=== PATIENT | male | born 1960 | race Caucasian/White ===

== ENCOUNTER → 2017-06-11 | Outpatient (CLI) | payer OTHER ==
--- NOTE | 2017-06-11 09:17 | RADIOLOGY REPORT (SQ) ---
EXAM DESCRIPTION: U/S ABDOMEN LIMITED W/O DOP COMPLETED DATE/TIME: 06/11/2017 9:05 am REASON FOR STUDY: ABNORMAL LFT (R94.5) R94.5 ABNORMAL RESULTS OF LIVER FUNCTION STUDIES COMPARISON: None. TECHNIQUE: Dynamic and static grayscale images acquired of the abdomen and recorded on PACS. Additio nal selected color Doppler and spectral images recorded. LIMITATIONS: Midline bowel gas FINDINGS: PANCREAS: Midline pancreas not visualized LIVER: No gross masses. Increased echogenicity from diffuse hepatocellular disease or fatty infiltra tion. LIVER VASCULATURE: Normal directional flow of the main portal vein and hepatic veins. GALLBLADDER: No stones. Normal wall thickness. No pericholecystic fluid. ULTRASOUND-DETECTED REYNOLDS'S SIGN: Negative. INTRAHEPATIC DUCTS AND COMMON DUCT: CBD and intrahepatic ducts normal caliber. No filling defects. D istal most common duct not seen due to duodenum gas. INFERIOR VENA CAVA: Not well seen AORTA: Not well seen RIGHT KIDNEY: Normal size. Normal echogenicity. No solid or suspicious masses. No hydronephrosis. No calcifications. PERITONEAL AND RIGHT PLEURAL SPACE: No ascites or effusions. OTHER: No other significant findings. IMPRESSION: Echogenic liver from diffuse hepatocellular disease or fatty infiltration Nonvisualized midline pancreas, abdominal aorta, vena cava No gallstones or biliary ductal dilatation TECHNICAL DOCUMENTATION: JOB ID: [id number] [employer]- All Rights Reserved
== END ==
LOC: RAD 07:56
PROVIDERS: ATTEND Family Medicine
DX: R94.5 Abnormal results of liver function studies (principal)
CPT/HCPCS: 76705

== ENCOUNTER 2018-11-18 08:35 | Day surgery (SDC) | payer OTHER ==
[2018-11-18] MEDS ORDERED: ONDANSETRON HCL INJ/PF 4 MG/2 ML SDV ONE (08:48)
[2018-11-18] MEDS ORDERED: DIPHENHYDRAMINE HCL 50 MG/ML VIAL ONE (08:48)
[2018-11-18] MEDS ORDERED: EPINEPHRINE INJ 1 MG/10 ML DISP.SYRIN ONE (08:49)
[2018-11-18] MEDS ORDERED: NALOXONE HCL INJ/PF 0.4 MG/1 ML SDV ONE (08:49)
[2018-11-18] MEDS ORDERED: GLUCAGON,HUMAN RECOMB 1 MG INJ ONE (08:49)
[2018-11-18] MEDS ORDERED: FLUMAZENIL INJ 0.5 MG/5 ML VIAL ONE (08:49)
[2018-11-18] MEDS: MIDAZOLAM 2 MG/2 ML INJ ONE ×3 (09:12→09:18)
[2018-11-18] MEDS: FENTANYL CITRATE INJ/PF 100 MCG/2 ML AMPUL ONE ×2 (09:14→09:20)
--- NOTE | 2018-11-18 09:42 | Discharge Summary ---
Discharge Summary (SDC) - Discharge Final Diagnosis: 1. History of adenocarcinoma of the colon status post subtotal colectomy, adjuvant therapy for stage III cancer 2. Anal verge skin tag 3. Normal colonoscopy to ileocolonic anastomosis Date of Surgery: 11/18/18 Discharge Date: 11/18/18 Condition: Good Treatment or Instructions: [address] [address] POST ENDOSCOPY DISCHARGE INSTRUCTIONS 1. Diet: Start clear liquids that a regular diet as tolerated. 2. Resume all preoperative medications. All oral anticoagulants and aspirins can be resumed 24 hours after procedure. 3. If a polypectomy was performed some bleeding per rectum may occur. This should stop within 3 days. If not, please contact the office. 4. If you had a colonoscopy you may experience some bloating and delayed return of normal bowel function for several days, your regular bowel movement pattern should resume within a week. 5. Please contact [facility] at to make an appointment with Dr. Romero for 1 to 3 weeks following procedure. 6. If you have any questions or concerns regarding your care,treatment plan or follow up, please contact our office. 7. Per clinical guidelines we recommend you undergo a repeat colonoscopy in 5 years. Referrals: HEIDI GARZA MD [Primary Care Provider] - Discharge Diet: As Tolerated Report the Following to Your Physician Immediately: Shortness of Breath, Increase in Pain, Fever over 101 Degrees
--- NOTE | 2018-11-18 09:59 | Operative Report ---
Operative Report DATE OF SURGERY: 11/18/18 PREOPERATIVE DIAGNOSIS: 1. Personal history of stage III adenocarcinoma of the colon status post subtotal colectomy and adjuvant chemotherapy. 2. Personal history of tubular villous adenomas removed 2014 POSTOPERATIVE DIAGNOSIS: 1. Normal rectosigmoid colon and anus; no evidence of recurrent malignancy. 2. Anal verge skin polyp OPERATION: Colonoscopy to ileocolonic anastomosis at approximately 80 cm from anal verge SURGEON: SHERRI BURRELL ANESTHESIA: Moderate Sedation TISSUE REMOVED OR ALTERED: None COMPLICATIONS: None ESTIMATED BLOOD LOSS: Scant INTRAOPERATIVE FINDINGS: See below PROCEDURE: Obtaining informed consent the patient was taken from the preoperative holding area to the main endoscopy suite where monitoring devices were attached to the patient. Plan and surgical timeout were conducted The patient was placed in the left lateral decubitus position with knees to chest. A perianal examination was performed. There was no visible or palpable anorectal pathology. Sphincter tone was felt to be normal. There was a small pedunculated skin tag at the anal verge The flexible adult colonoscope was advanced through the anal rectal canal, all the way to the ileocolonic anastomosis. The anastomosis is widely patent. The colonoscope was advanced to the terminal ileum approximately 8 cm. Photos taken. There is no evidence of recurrent tumor at the anastomosis nor polyps. The anastomosis was at approximately 80 cm from the anal verge. The scope was withdrawn through the length of the remaining colon. There was no evidence of tumor, stricture, bleeding or polyp. There was no evidence of diverticuloses. The scope was slowly withdrawn through the anal rectal canal. Complete visualization of the rectum was achieved with photodocumentation. The scope was withdrawn to the patient's anus. The patient tolerated the procedure well and was taken to the recovery area in stable condition. Patient be an appropriate candidate for surveillance colonoscopy in 5 years, or sooner if symptoms develop.
[2018-11-18 10:36] VITALS: BP 124/76
== END 2018-11-18 11:40 | disposition home or self-care (01) ==
LOC: END 08:35
PROVIDERS: ATTEND Surgery
DX: Z12.11 Encounter for screening for malignant neoplasm of colon (principal); K64.4 Residual hemorrhoidal skin tags; Z85.038 Personal history of other malignant neoplasm of large intestine; Z86.010 Personal history of colon polyps; I10 Essential (primary) hypertension; E78.00 Pure hypercholesterolemia, unspecified; Z86.73 Personal history of transient ischemic attack (TIA), and cerebral infarction without residual deficits; Z79.899 Other long term (current) drug therapy; Z79.82 Long term (current) use of aspirin; Z87.891 Personal history of nicotine dependence
CPT/HCPCS: 45378; J2250; J3010; J0171; J1200; J1610; J2310; J2405; J3490